=== PATIENT | male | born 1995 | race Caucasian/White ===

== ENCOUNTER 2018-03-24 14:45 | Emergency (ER) | payer OTHER ==
[2018-03-24] MEDS: LIDOCAINE 1%/EPI 1:100,000 20 ML VIAL. INJ (16:35)
[2018-03-24] MEDS: ONDANSETRON ODT 4 MG TAB.RAPDIS. PO (16:36)
[2018-03-24] MEDS: cefTRIAXone IM 1 GM VIAL IM (16:36)
[2018-03-24] MEDS: HYDROcodone/APAP 5/325MG 1 TAB TABLET PO (16:37)
[2018-03-24] MEDS: LIDOCAINE 1% PF 2 ML VIAL. INJ (16:38)
[2018-03-24] MEDS: DIPHTH,PERTUSS(ACELL),TET TOX 0.5 ML DISP.SYRIN. VAX IM (16:39)
== END 2018-03-24 17:26 | disposition home or self-care (01) ==
LOC: ER 17:26
DX: L03.114 Cellulitis of left upper limb (principal)
CPT/HCPCS: 10060; 73080; 90471; 90715; 96372; 99284-25; J0696; J3490; Q0162

== ENCOUNTER 2019-05-03 21:49 | Emergency (ER) | payer OTHER, MEDICAID ==
[~2019-05-03] VITALS: Ht 175.3 cm; Wt 74.8 kg
[~2019-05-03 21:49] MED LIST: HYDR-3164 PO; SULF1TAB24 PO
[2019-05-03 21:55] VITALS: BP 126/73
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
[2019-05-03] MEDS ORDERED: CYCL10TA2 PO (23:13)
--- NOTE | 2019-05-04 04:23 | RAD ---
Single view chest and right-sided rib study dated 05/03/2019. No comparison available. CLINICAL INDICATION: Pain after injury. FINDINGS: Single upright view of the chest shows normal heart and mediastinal contours. Lungs are clear. No consolidation or pleural effusion. No pneumothorax. Dedicated views of the right-sided ribs show a small nondisplaced fracture of the 10th lateral right rib. Osseous structures are otherwise intact. IMPRESSION: 1. Nondisplaced fracture of the 10th lateral right rib. 2. Otherwise no acute findings. No pneumothorax. Electronically signed by: Forest Gibson MD (05/04/2019 4:21 AM) [facility]
== END 2019-05-03 23:15 | disposition home or self-care (01) ==
LOC: ER 21:49
DX: S22.31XA Fracture of one rib, right side, initial encounter for closed fracture (principal); S13.9XXA Sprain of joints and ligaments of unspecified parts of neck, initial encounter; S00.03XA Contusion of scalp, initial encounter; V79.88XA Bus occupant (driver) (passenger) injured in other specified transport accidents, initial encounter; Y93.89 Activity, other specified; Y92.488 Other paved roadways as the place of occurrence of the external cause; Y99.8 Other external cause status
CPT/HCPCS: 71101; 99284

== ENCOUNTER 2019-08-24 23:55 | Emergency (ER) | payer MEDICAID, OTHER ==
[~2019-08-24] VITALS: Ht 175.3 cm; Wt 77.1 kg
[~2019-08-24 23:55] MED LIST changes: +CYCL10TA2 PO
[2019-08-25 01:15] VITALS: BP 119/78
[2019-08-25] MEDS ORDERED: VANCOMYCIN PER PHARMACY MC PRN (02:15)
[2019-08-25 02:25] LABS: BASO % 0 % (0-3); EOS # 0.2 x10^3/uL (0.0-0.7); EOS % 2 % (0-3); HEMATOCRIT 39.2 % (39.0-53.0); HEMOGLOBIN 13.4 g/dL (13.0-17.5); LYMPH # 2.7 x10^3/uL (1.0-4.8); LYMPH % 23 % (24-48); MEAN CORPUSCULAR HEMOGLOBIN 32 pg (25-35); MEAN CORPUSCULAR HGB CONC 34 g/dL (31-37); MEAN CORPUSCULAR VOLUME 92 fL (79-100); MONO % 8 % (0-9); NEUT # 7.7 x10^3/uL (1.8-7.7); NEUT % 67 % (31-73); PLATELET COUNT 272 x10^3/uL (140-400); RED BLOOD COUNT 4.25 x10^6/uL (4.30-5.70); RED CELL DISTRIBUTION WIDTH 12.7 % (11.5-14.5); WHITE BLOOD COUNT 11.5 x10^3/uL (4.0-11.0)
[2019-08-25] MEDS ORDERED: LIDOCAINE 1% Multi-Dose 20 ML VIAL. INJ ONE (02:30)
[2019-08-25] MEDS ORDERED: VANCOMYCIN 2 GM in IV NORMAL SALINE 500ML BAG 500 ML IV ONE (02:30)
[2019-08-25 02:34] LABS: CALCIUM 9.4 mg/dL (8.5-10.1); GFR 91.8; POTASSIUM 3.5 mmol/L (3.5-5.1)
[2019-08-25 02:39] LABS: ALBUMIN 4.1 g/dL (3.4-5.0); TOTAL BILIRUBIN 0.6 mg/dL (0.2-1.0); TOTAL PROTEIN 8.4 g/dL (6.4-8.2)
[2019-08-25] MEDS ORDERED: DOXY100C2 PO (03:26)
--- NOTE | 2019-08-25 03:26 | PHYS DOC ---
Past Medical History Past Medical History: No Pertinent History Past Surgical History: Other Additional Past Surgical Histo: I&D on left arm Alcohol Use: None Drug Use: None Adult General Chief Complaint Chief Complaint: ABSCESS HPI HPI 24-year-old male presents to emergency Department complaints of left elbow infection. Patient states symptoms started 4 days ago. He describes redness, warmth appreciated to the left elbow, there has been some drainage appreciated, he describes nausea as well as. Patient denies any IVD use however has evidence of tract monreal appreciated. Patient states the erythema is worsening. Patient has been on no abx therapy at this time Review of Systems Review of Systems Constitutional: Denies fever or chills [] Eyes: Denies change in visual acuity, redness, or eye pain [] HENT: Denies nasal congestion or sore throat [] Respiratory: Denies cough or shortness of breath [] Cardiovascular: No additional information not addressed in HPI [] GI: Denies abdominal pain, + nausea, vomiting, bloody stools or diarrhea [] Musculoskeletal: left elbow pain Integument: lesion to left elbow Neurologic: Denies headache, focal weakness or sensory changes [] All other systems were reviewed and found to be within normal limits, except as documented in this note. Current Medications Current Medications Current Medications Medications (Trade) Dose Ordered Sig/Rina Start Time Stop Time Status Last Admin Dose Admin Acetaminophen/ Hydrocodone Bitart (Lortab 5/325) 1 tab 1X ONCE 08/25/19 04:00 08/25/19 04:01 DC 08/25/19 03:36 1 TAB Diphenhydramine HCl (Benadryl) 25 mg 1X ONCE 08/25/19 04:30 08/25/19 04:07 DC 08/25/19 04:04 25 MG Lidocaine HCl (Lidocaine 1% 20ml Vial) 20 ml 1X ONCE 08/25/19 02:30 08/25/19 02:31 DC Vancomycin HCl (Vanco Per Pharmacy) 1 each PRN DAILY PRN 08/25/19 02:15 08/25/19 04:07 DC Vancomycin HCl 2 gm/Sodium Chloride 500 ml @ 250 mls/hr 1X ONCE 08/25/19 02:30 08/25/19 04:07 DC 08/25/19 02:29 250 MLS/HR Allergies Allergies Allergies Coded Allergies Type Severity Reaction Last Updated Verified vancomycin Allergy Unknown red man syndrome 08/25/19 Yes Physical Exam Physical Exam Constitutional: Well developed, well nourished, no acute distress, non-toxic appearance. [] HENT: Normocephalic, atraumatic, bilateral external ears normal, oropharynx moist, no oral exudates, nose normal. [] Eyes: PERRLA, EOMI, conjunctiva normal, no discharge. [] Cardiovascular:Heart rate regular rhythm, no murmur [] Lungs & Thorax: Bilateral breath sounds clear to auscultation [] Skin: lesion appreciated to left elbow, minimal amount of drainage, erythema with some streaking down his arm Extremities: No tenderness, no edema. [] Neurologic: Alert and oriented X 3, no focal deficits noted. [] Psychologic: Affect normal, judgement normal, mood normal. [] Current Patient Data Vital Signs Vital Signs Date Time Temp Pulse Resp B/P (MAP) Pulse Ox O2 Delivery O2 Flow Rate FiO2 08/25/19 03:36 20 Room Air 08/25/19 01:15 98.1 112 119/78 (92) 97 98.1 Lab Values Laboratory Tests Test 08/25/19 02:13 White Blood Count 11.5 x10^3/uL (4.0-11.0) H Red Blood Count 4.25 x10^6/uL (4.30-5.70) L Hemoglobin 13.4 g/dL (13.0-17.5) Hematocrit 39.2 % (39.0-53.0) Mean Corpuscular Volume 92 fL (79-100) Mean Corpuscular Hemoglobin 32 pg (25-35) Mean Corpuscular Hemoglobin Concent 34 g/dL (31-37) Red Cell Distribution Width 12.7 % (11.5-14.5) Platelet Count 272 x10^3/uL (140-400) Neutrophils (%) (Auto) 67 % (31-73) Lymphocytes (%) (Auto) 23 % (24-48) L Monocytes (%) (Auto) 8 % (0-9) Eosinophils (%) (Auto) 2 % (0-3) Basophils (%) (Auto) 0 % (0-3) Neutrophils # (Auto) 7.7 x10^3/uL (1.8-7.7) Lymphocytes # (Auto) 2.7 x10^3/uL (1.0-4.8) Monocytes # (Auto) 1.0 x10^3/uL (0.0-1.1) Eosinophils # (Auto) 0.2 x10^3/uL (0.0-0.7) Basophils # (Auto) 0.0 x10^3/uL (0.0-0.2) Sodium Level 138 mmol/L (136-145) Potassium Level 3.5 mmol/L (3.5-5.1) Chloride Level 100 mmol/L (98-107) Carbon Dioxide Level 29 mmol/L (21-32) Anion Gap 9 (6-14) Blood Urea Nitrogen 15 mg/dL (8-26) Creatinine 1.0 mg/dL (0.7-1.3) Estimated GFR (Cockcroft-Gault) 91.8 BUN/Creatinine Ratio 15 (6-20) Glucose Level 88 mg/dL (70-99) Lactic Acid Level 1.1 mmol/L (0.4-2.0) Calcium Level 9.4 mg/dL (8.5-10.1) Total Bilirubin 0.6 mg/dL (0.2-1.0) Aspartate Amino Transferase (AST) 20 U/L (15-37) Alanine Aminotransferase (ALT) 30 U/L (16-63) Alkaline Phosphatase 42 U/L (46-116) L Total Protein 8.4 g/dL (6.4-8.2) H Albumin 4.1 g/dL (3.4-5.0) Albumin/Globulin Ratio 1.0 (1.0-1.7) Laboratory Tests 08/25/19 02:13 Laboratory Tests 08/25/19 02:13 EKG EKG [] Radiology/Procedures Radiology/Procedures [] Course & Med Decision Making Course & Med Decision Making Pertinent Labs and Imaging studies reviewed. (See chart for details) []24-year-old male presents to emergency Department complaints of left elbow infection. Patient states symptoms started 4 days ago. He describes redness, warmth appreciated to the left elbow, there has been some drainage appreciated, he describes nausea as well as. Patient denies any IVD use however has evidence of tract monreal appreciated. Patient states the erythema is worsening. Patient has been on no abx therapy at this time Labs reviewed, lactic within normal limits Vancomycin IV per pharm with reaction - redness to face Benadryl IVP 25mg x 1 Abscess Incision and Drainage with irrigation by me: Location: left elbow Anesthesia: Local 1% Lidocaine Technique: Irrigated. Disrupted loculations w/ instrumentation Packing: None Complications: Neurovascularly intact post procedure Scar minimization instructions given. Plan doxycycline 100 mg by mouth twice a day 10 days Dragon Disclaimer Dragon Disclaimer This electronic medical record was generated, in whole or in part, using a voice recognition dictation system. Departure Departure Impression: Primary Impression: Cellulitis and abscess of upper arm and forearm Disposition: 01 HOME, SELF-CARE Condition: IMPROVED Referrals: NO PCP (PCP) Patient Instructions: Abscess, Care After, Cellulitis, [id number] Additional Instructions: Recommend follow up with PCP 3 - 5 days Return to the ER with worsening symptoms, intractable pain, fever, altered mental status Tylenol/Motrin as needed for pain Take antibiotics as directed Scripts Doxycycline Hyclate (DOXYCYCLINE HYCLATE) 100 Mg Capsule 1 CAP PO BID for 10 Days, #20 CAP Prov: ANGEL CODY MD 08/25/19 ANGEL CODY MD Aug 25, 2019 03:26
[2019-08-25] MEDS ORDERED: HYDROcodone/APAP 5/325MG 1 TAB TABLET PO ONE (04:00)
[2019-08-25] MEDS ORDERED: diphenhydrAMINE 50 MG/ML VIAL IVP ONE (04:30)
== END 2019-08-25 04:07 | disposition home or self-care (01) ==
LOC: ER 23:55
DX: L02.414 Cutaneous abscess of left upper limb (principal); Z88.1 Allergy status to other antibiotic agents
CPT/HCPCS: 10060; 36415; 80053; 83605; 85025; 96365; 96375; 99284; J1200; J3370; J7040

== ENCOUNTER 2020-11-17 15:49 | Emergency (ER) | payer SELFPAY ==
[~2020-11-17] VITALS: Ht 172.7 cm; Wt 75.0 kg
[~2020-11-17 15:49] MED LIST changes: +DOXY100C2 PO
[2020-11-17 15:57] VITALS: BP 125/73
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
== END 2020-11-17 16:00 | disposition left against medical advice (07) ==
LOC: ER 15:49
DX: R10.31 Right lower quadrant pain (principal); R10.32 Left lower quadrant pain; R11.2 Nausea with vomiting, unspecified; F17.200 Nicotine dependence, unspecified, uncomplicated; Z98.890 Other specified postprocedural states; Z88.1 Allergy status to other antibiotic agents
CPT/HCPCS: 99283